=== PATIENT | female | born 1935 | race Caucasian/White ===

== ENCOUNTER 2019-08-07 14:57 | Emergency (ER) | payer OTHER ==
[~2019-08-07] VITALS: Ht 162.6 cm; Wt 70.8 kg
[~2019-08-07 14:57] MED LIST: ALBU3IS INH; ALBU90OI6 INH; ALBU90OI61 INH; ALPR.25 PO; AMARYL 4 MG; AMLO5 PO; ASPI81CH PO; AZIT250 PO; Aldactone25 MG; Aldactone25 MG PO; Amaryl2 MG PO; BENZ100A PO; BUDE6HFA; BUDE6HFA INH; CARV25 PO; CEFD300 PO; CEFU500 PO; CLON.2 TD; CLON.2TP TOP; CLON.3TP TOP; COUMADIN 5 MG; CYCL10 PO; Cipro500 MG PO; Crestor PO; DICLOFENAC RIGHTEYE; DIGITEK; DIGO.25; DIGOXIN 0.25 MG; DIOVAN; ELIQUIS2.5 MG PO; FLUSAL2505; FLUSAL2505 INH; FURO20 PO; FURO40; FURO40 PO; Ferrous Glucon324 M1 PO; GEMF600; GLIM2; GLIM2 PO; GLIM4; GLIM4 PO; HYDACE5 PO; HYDGUAL120 PO; HYLANDS LEG CRAMPS SL; IBUP600 PO; INDA2.5; INDAPAMIDE 2.5 MG; ISOD40ER PO; ISOMON30 PO; ISOMON60ER PO; K-Dur20 MEQ PO; KLOR CON 20 MEQ; LEVFLO500 PO; LOSA50 PO; META800 PO; METO2.5 PO; METO25ER; METO5 PO; METO50ER; METO50ER PO; METPRE4DP PO; Micro-K10 MEQ PO; OMEP20ER; OXYC5; OXYC5 PO; POTA10T PO; POTA20PAC; POTCHL20ER; PRED10 PO; PRED1SU RIGHTEYE; PRED20; PRED20 PO; PREDNISONE 20 MG; PROACE100 PO; Prilosec Otc20 MG PO; QUININE SULFAT324 MG PO; RAMI5; RAMI5 PO; ROFE25; ROSU10TA PO; RXPROACE PO; SANDOZ RIGHTEYE; SERT25 PO; TOPROL 50 MG; TORS10; TORSE20 PO; TRAM50 PO; UBID10 PO; VALS80; VALS80 PO; VIOXX; VITAMIN D-32000 UNI1 PO; Ventolin Soln3 ML INH; WARF1 PO; WARF2 PO; WARF4; WARF4 PO; WARF5; XARELTO10 MG PO; ZYRTEC10 M2 PO; Zofran Odt4 MG PO
[2019-08-07] MEDS ORDERED: SERT25 PO (15:21)
[2019-08-07] MEDS ORDERED: SPIR25 PO (15:22)
[2019-08-07] MEDS ORDERED: METO50ER PO (15:22)
[2019-08-07] MEDS ORDERED: Co Q-1010 MG PO (15:23)
[2019-08-07] MEDS ORDERED: ATOR20 PO (15:23)
[2019-08-07] MEDS ORDERED: QUIN300 (15:24)
[2019-08-07] MEDS ORDERED: ALPR.25 PO (15:24)
[2019-08-07] MEDS ORDERED: OXYC5 PO (15:24)
[2019-08-07] MEDS ORDERED: Prednisone20 MG PO (16:21)
== END 2019-08-07 16:43 | disposition home or self-care (01) ==
LOC: ER 14:57
DX: M54.31 Sciatica, right side (principal); I11.0 Hypertensive heart disease with heart failure; I50.9 Heart failure, unspecified; I25.10 Atherosclerotic heart disease of native coronary artery without angina pectoris; J44.9 Chronic obstructive pulmonary disease, unspecified; E11.9 Type 2 diabetes mellitus without complications; F32.9 Major depressive disorder, single episode, unspecified; Z88.2 Allergy status to sulfonamides; Z88.0 Allergy status to penicillin; Z88.5 Allergy status to narcotic agent; Z79.899 Other long term (current) drug therapy; Z79.01 Long term (current) use of anticoagulants; Z79.82 Long term (current) use of aspirin
CPT/HCPCS: 73502; 99283-25; J7512

== ENCOUNTER 2019-10-07 17:55 | Inpatient (IN) | payer OTHER ==
[~2019-10-07] VITALS: Ht 162.6 cm; Wt 68.3 kg
[~2019-10-07 17:55] MED LIST changes: -ASPI81CH PO; +ATOR40TA PO; +Aspir 8181 MG PO; +Co Q-1010 MG PO; -ISOMON60ER PO; +Isosorbide Mono60 MG PO; +Prednisone20 MG PO; +QUIN300; +SPIR25 PO
[2019-10-07 18:26] LABS: BASOPHILS ABSOLUTE AUTO 0.02 K/mm3 (0.00-0.23); BASOPHILS PERCENT AUTO 0 % (0-2); EOSINOPHILS ABSOLUTE AUTO 0.18 K/mm3 (0.00-0.68); EOSINOPHILS PERCENT AUTO 2 % (0-6); Hematocrit 41.2 % (33.0-51.0); Hemoglobin 13.2 g/dL (11.5-16.0); IMMATURE GRAN ABSOLUTE AUTO 0.02 K/mm3 (0.00-0.10); IMMATURE GRAN PERCENT AUTO 0 % (0-1); LYMPHOCYTES ABSOLUTE AUTO 2.81 K/mm3 (0.84-5.20); LYMPHOCYTES PERCENT AUTO 35 % (21-46); MONOCYTES ABSOLUTE AUTO 0.54 K/mm3 (0.16-1.47); MONOCYTES PERCENT AUTO 7 % (4-13); Mean Corpuscular Volume 94 fL (80-100); Mean Platelet Volume 10.4 fL (9.1-12.4); NEUTROPHILS PERCENT AUTO 56 % (41-73); Platelet Count 171 K/mm3 (150-400); RDW Coefficient Variation 12.4 % (11.7-14.2); White Blood Cell Count 8.07 K/mm3 (4.00-11.30)
[2019-10-07] MEDS ORDERED: Vitamin D2000 UNIT PO (18:37)
[2019-10-07] MEDS ORDERED: ESCI10 PO (18:38)
[2019-10-07] MEDS ORDERED: QUET25 PO (18:39)
[2019-10-07 18:45] LABS: Alanine Aminotransfer (ALT/SGP 32 U/L (12-78); Albumin, Blood 3.8 g/dL (3.4-5.0); Albumin/Globulin Ratio 1.1 (0.8-1.8); Alk Phos 123 U/L (50-136); Anion Gap 3 mmol/L (6-16); Aspartate Aminotrans (AST/SGOT 29 U/L (12-37); Bilirubin, Total 0.5 mg/dL (0.1-1.0); Blood Urea Nitrogen 30 mg/dL (8-24); Bun/Creatinine Ratio 20.3 (12.0-20.0); CO2, Blood 35 mmol/L (21-32); Calcium, Blood 9.9 mg/dL (8.5-10.1); Chloride, Blood 99 mmol/L (98-108); Creatinine, Blood 1.48 mg/dL (0.40-1.00); Globulin, Blood 3.6 g/dL (2.2-4.0); Glomerular Filtration Rate 36 (60-); Glucose, Blood 158 mg/dL (70-99); Sodium, Blood 137 mmol/L (136-145); Total Protein, Blood 7.4 g/dL (6.4-8.2); Troponin I <0.015 ng/mL (0.000-0.040)
[2019-10-07] MEDS ORDERED: ZOLOFT25 MG PO (19:13)
[2019-10-07] MEDS ORDERED: OXYC5 PO (20:03)
--- NOTE | 2019-10-07 22:29 | NUR ---
ADMISSION NOTE PT ARRIVED TO FLOOR VIA STRETCHER, 1 PER ASSIST TO BEDSIDE. PT IS VERY [place], A&O, DISORIENTED TO DATE/TIME. DAUGHTER, JEAN CLAUDE, AT BEDSIDE. TELE APPLIED, DENIES CHEST PAIN, CONT PULSE OX APPLIED. ASSUMING CARE OF PT
--- NOTE | 2019-10-08 05:16 | NUR ---
ELEVATED TROPONINS TROPONINS UP THIS AM TO 0.239, NO CHEST PAIN, NO TELE CHANGES. NOTIFIED DR TOLENTINO. NO FURTHER ORDERS, WILL CONT TO MONITOR.
--- NOTE | 2019-10-08 05:27 | NUR ---
SHIFT SUMMARY PT ADMITTED EARLIER IN SHIFT. PT HX OBTAINED FROM DAUGHTER, JEAN CLAUDE, WHO PT RESIDES WITH AND IS TAKEN CARE OF BY. ACCORDING TO DAUGHTER, PT WAS RECENTLY DIAGNOSED WITH EARLY ALZ-DEMENTIA. PT STARTED HAVING CP AFTER TAKING HER PM DOSE OF SEROQUEL, EPISODE LASTED ABOUT 20 MINS. PT HAS EXTENSIVE CARDIAC HX. INITIALLY, TROPONINS WERE NEGATIVE. HOWEVER, AT REDRAW THIS AM TROPONINS ELEVATED AT 0.239. NO EKG/TELE CHANGES, NO CHEST PAIN. VSS. DR TOLENTINO NOTIFIED AND NO FURTHER ORDERS GIVEN. TELE IN PLACE; 100% VENTRICULAR PACED AT 60. PT A&OX2, DISORIENTED TO LOCATION, DATE/TIME. BED ALARM ON FOR SAFETY, HOWEVER PT HAS BEEN USING CALL LT APPROP. USING FWW WITH 1 PER ASSIST FOR AMBULATION, BASELINE INDEPENDENT c CANE. ON BASELINE HOME O2 @ 2L VIA HUMIDIFIED NC. O2 SATS CURRENTLY 97% ON CONT PULSE OX. NO OTHER CHANGES. WILL CONT TO MONITOR AND PROVIDE CARE UNTIL PRESUMED BY ONCOMING RN.
--- NOTE | 2019-10-08 14:31 | NUR ---
PT TRANSFERRED TO PCU FOR INCREASED MONITORING FROM ELEVATED TROPONINS. PT CURRENTLY DENIES ANY CHEST PAIN OR SHORTNESS OF BREATH. PER TELEMETRY, PT IS SHOWING 100% V-PACED, OTHER VITALS ARE STABLE. PT IS WEARING 2L OXYGEN VIA NASAL CANNULA AND PER HER FAMILY THAT IS WHAT SHE WEARS AT HOME. PT HAS A HISTORY OF DEMENTIA AND IS CURRENTLY A&Ox2. ORIENTED PT AND FAMILY TO UNIT, UPDATED ON PLAN OF CARE AND PLACED BED ALARM FOR PT'S SAFETY.
--- NOTE | 2019-10-08 14:41 | NUR ---
PT TRANSFERED TO PCU. PT LEFT UNIT VIA BED. REPORT GIVEN TO PCU NURSE.
--- NOTE | 2019-10-08 19:17 | NUR ---
SHIFT SUMMARY PT HAS REMAINED WITHOUT CP SINCE ARRIVING TO DEPT THIS AFTERNOON. TELEMETRY CONTINUES TO SHOW V-PACED. THIS EVENING PT HAD A CRITICAL TROP OF 9.14. DR YEUNG WAS CALLED AND ORDERS TO D/C ANY MORE TROPONINS RECEIVED. PT REMAINS ON BASELINE OF HOME O2 AT 2LNC. PT DECLINES ANY OTHER CONCERNS OR COMPLAINTS AT THIS TIME.
--- NOTE | 2019-10-08 22:38 | NUR ---
ASSUMED CARE OF PATIENT AT APPROXIMATELY 1900 FROM ALLISON Crespo RN. PATIENT ALERT AND ORIENTED TO SELF, FAMILY AND LOCATION. PATIENT REPORTS SHE WOULD LIKE TO GO BACK HOME TO HER DOGS SOON POSSIBLE. PATIENT DENIES CP/PRESSURE, PAIN ELESWHERE, NUMBNESS, TINGLING, DIZZINESS OR NAUSEA. PATIENT ONE ASSIST WITH FWW OUT OF BED. 100% PACED ON TELE; OXYGEN SATURATION ABOVE 90% ON 2LPM VIA NC (BASELINE). TROPONIN TRENDING UP; CRITICALLY HIGH; DAYSHIFT RN REPORTS CARDIO NOTIFIED. MULTIPLE FAMILY MEMBERS AT BEDSIDE DURING SHIFT CHANGE; MULTIPLE VISITORS FOR THE FIRST FEW HOURS OF SHIFT. PIV S/L. PATIENT CURRENTLY RESTING IN BED; CALL LIGHT IN REACH; BED IN LOWEST POSISTION; BED ALARM ON; WILL CONTINUE TO MONITOR AND ASSESS UNTIL END OF SHIFT.
[2019-10-09 03:35] LABS: BASOPHILS ABSOLUTE AUTO 0.02 K/mm3 (0.00-0.23); BASOPHILS PERCENT AUTO 0 % (0-2); EOSINOPHILS ABSOLUTE AUTO 0.09 K/mm3 (0.00-0.68); EOSINOPHILS PERCENT AUTO 2 % (0-6); Hemoglobin 12.1 g/dL (11.5-16.0); IMMATURE GRAN ABSOLUTE AUTO 0.02 K/mm3 (0.00-0.10); IMMATURE GRAN PERCENT AUTO 0 % (0-1); LYMPHOCYTES ABSOLUTE AUTO 1.17 K/mm3 (0.84-5.20); LYMPHOCYTES PERCENT AUTO 20 % (21-46); MONOCYTES ABSOLUTE AUTO 0.48 K/mm3 (0.16-1.47); MONOCYTES PERCENT AUTO 8 % (4-13); Mean Corpuscular HGB 30.2 pg (26.0-34.0); Mean Corpuscular HGB Conc 31.8 g/dL (31.5-36.5); Mean Corpuscular Volume 95 fL (80-100); Mean Platelet Volume 10.4 fL (9.1-12.4); NEUTROPHILS ABSOLUTE AUTO 4.09 K/mm3 (1.96-9.15); NEUTROPHILS PERCENT AUTO 70 % (41-73); Platelet Count 148 K/mm3 (150-400); RDW Coefficient Variation 12.3 % (11.7-14.2); RDW Standard Deviation 43.2 fL (35.1-46.3); Red Blood Cell Count 4.01 M/mm3 (3.80-5.20); White Blood Cell Count 5.87 K/mm3 (4.00-11.30)
[2019-10-09 03:57] LABS: Albumin, Blood 3.4 g/dL (3.4-5.0); Albumin/Globulin Ratio 1.1 (0.8-1.8); Bilirubin, Total 0.6 mg/dL (0.1-1.0); Bun/Creatinine Ratio 21.4 (12.0-20.0); Creatinine, Blood 1.26 mg/dL (0.40-1.00); Globulin, Blood 3.1 g/dL (2.2-4.0); Total Protein, Blood 6.5 g/dL (6.4-8.2)
--- NOTE | 2019-10-09 06:06 | NUR ---
NO ACUTE CHANGES TO REPORT. PATIENT SLEPT ABOUT EIGHT HOURS. VSS. WILL CONTINUE TO MONITOR AND ASSESS UNTIL END OF SHIFT.
--- NOTE | 2019-10-09 08:16 | NUR ---
AM NOTE. ASSUMED CARE OF PT APROX 0700. PT IS A&Ox3 UNABLE TO STATE THE DATE BUT KNEW WHERE SHE WAS, WHO THE PRESIDENT WAS, NAME AND . PT WAS ADMITTED FOR CP W/ELEVATED TROPS. PT CURRENTLY DENIES ANY CHEST PAIN/PRESSURE AT THIS TIME. PT'S VS STABLE. PT HAS 1+ EDEMA TO HER BLE. L/S SCATTERED RHONCHI NOTED T/O LOBES, PT IS ON 2 L NC WITH O2 SATS >94%. PT IS 100% PACED ON TELE, NO EVENTS NOTED PER BUCKLE SEWER MACHINE. CALL LIGHT IN REACH, WILL CONTINUE TO MONITOR.
--- NOTE | 2019-10-09 12:34 | NUR ---
Echocardiogram completed.
--- NOTE | 2019-10-09 17:59 | NUR ---
SHIFT SUMMARY. NO ACUTE NEGATIVE CHANGES NOTED THIS SHIFT. PT'S VS HAVE BEEN STABLE. PT HAS BEEN GETTING AND WALKING TO THE BATHROOM PRN W/FWW. PT'S DAUGHTER HAS BEEN AT THE BEDSIDE T/O SHIFT. PT DENIES ANY CHEST PAIN/PRESSURE N/V OR SOB. PT HAS BEEN 100% PACED ON MONITORS AND NO EVENTS NOTED. CALL LIGHT IN REACH, BED IS LOCKED AND LOW, WILL CONTINUE TO MONITOR UNTIL REPORT IS GIVEN TO ONCOMING RN.
--- NOTE | 2019-10-09 21:48 | NUR ---
ASSUMED CARE OF PATIENT AT APPROXIMATELY 1910 FROM BERTRAM Walter RN. PATIENT ALERT AND ORIENTED TO SELF, FAMILY AND LOCATION. PATIENT HAPPY SHE WAS ABLE TO VISIT HER DOG TODAY; REPORTS FAMILY MEMBER BROUGHT PET IN. PATIENT DENIES CP/PRESSURE, PAIN ELESWHERE, NUMBNESS, TINGLING, DIZZINESS OR NAUSEA. PATIENT ONE ASSIST WITH FWW OUT OF BED. 100% PACED ON TELE; OXYGEN SATURATION ABOVE 90% ON 2LPM VIA NC (BASELINE). PIV S/L. PATIENT CURRENTLY RESTING IN BED; CALL LIGHT IN REACH; BED IN LOWEST POSISTION; BED ALARM ON; WILL CONTINUE TO MONITOR AND ASSESS UNTIL END OF SHIFT.
--- NOTE | 2019-10-10 03:04 | NUR ---
REVIEWED CODE STATUS TO ASSIST STAFF.
[2019-10-10 04:34] LABS: BASOPHILS ABSOLUTE AUTO 0.02 K/mm3 (0.00-0.23); BASOPHILS PERCENT AUTO 0 % (0-2); EOSINOPHILS ABSOLUTE AUTO 0.22 K/mm3 (0.00-0.68); EOSINOPHILS PERCENT AUTO 4 % (0-6); Hematocrit 36.4 % (33.0-51.0); Hemoglobin 11.4 g/dL (11.5-16.0); IMMATURE GRAN ABSOLUTE AUTO 0.01 K/mm3 (0.00-0.10); IMMATURE GRAN PERCENT AUTO 0 % (0-1); LYMPHOCYTES ABSOLUTE AUTO 1.72 K/mm3 (0.84-5.20); LYMPHOCYTES PERCENT AUTO 31 % (21-46); MONOCYTES ABSOLUTE AUTO 0.59 K/mm3 (0.16-1.47); MONOCYTES PERCENT AUTO 11 % (4-13); Mean Corpuscular HGB 30.3 pg (26.0-34.0); Mean Corpuscular HGB Conc 31.3 g/dL (31.5-36.5); Mean Corpuscular Volume 97 fL (80-100); Mean Platelet Volume 10.5 fL (9.1-12.4); NEUTROPHILS ABSOLUTE AUTO 2.93 K/mm3 (1.96-9.15); NEUTROPHILS PERCENT AUTO 53 % (41-73); Platelet Count 137 K/mm3 (150-400); RDW Coefficient Variation 12.5 % (11.7-14.2); RDW Standard Deviation 44.6 fL (35.1-46.3); Red Blood Cell Count 3.76 M/mm3 (3.80-5.20); White Blood Cell Count 5.49 K/mm3 (4.00-11.30)
[2019-10-10 04:54] LABS: Albumin, Blood 3.2 g/dL (3.4-5.0); Anion Gap 3 mmol/L (6-16); Blood Urea Nitrogen 33 mg/dL (8-24); Bun/Creatinine Ratio 18.1 (12.0-20.0); CO2, Blood 37 mmol/L (21-32); Calcium, Blood 8.8 mg/dL (8.5-10.1); Chloride, Blood 98 mmol/L (98-108); Creatinine, Blood 1.82 mg/dL (0.40-1.00); Glomerular Filtration Rate 28 (60-); Glucose, Blood 192 mg/dL (70-99); Magnesium, Blood 1.8 mg/dL (1.6-2.4); Phosphorus, Blood 3.4 mg/dL (2.5-4.9); Potassium, Blood 3.8 mmol/L (3.5-5.5); Sodium, Blood 138 mmol/L (136-145)
--- NOTE | 2019-10-10 06:46 | NUR ---
PATIENT SLEPT ABOUT SEVEN HOURS LAST NIGHT. TROPONIN REMAINS CRITICALLY HIGH; TRENDING DOWN FROM LAST ONE. VSS. NO ACUTE CHANGES TO REPORT. WILL CONTINUE TO MONITOR AND ASSESS UNTIL END OF SHIFT.
--- NOTE | 2019-10-10 08:01 | NUR ---
AM NOTE. ASSUMED CARE OF PT APROX 0700. PT IS A&Ox3 UNABLE TO STATE THE DATE AT THIS TIME. PT WAS ADMITTED FOR CHEST PAIN AND WAS FOUND TO HAVE ELEVATED TROPONINS. MEDICAL MANAGMENT WAS THE DECIDED PLAN OF CARE. PT'S VS HAVE BEEN STABLE, PT HAS DENIED ANY CHEST PAIN/PRESSURE AT THIS TIME. PT HAS BEEN GETTING UP AND WALKING TO THE BATHROOM AND SAT UP IN A CHAIR FOR BREAKFAST. PT'S DAUGHTER IS AT THE BEDSIDE. PT IS 100% PACED, 1+ EDEMA IS NOTED TO THE PT'S ANKELS, L/S CLEAR AND DIM T/O, THIS IS IMPROVMENT FROM YESTERDAY WHERE SHE HAD RALES/RHOCHI. BT PRESENT AND NORMOACTIVE, ABD IS SOFT AND NONTENDER TO PALP. CALL LIGHT IN REACH, BED IS LOCKED AND LOW W/BED ALARM ON WILL CONTINUE TO MONITOR.
--- NOTE | 2019-10-10 12:04 | NUR ---
Spiritual care visit conducted. Patient is sleeping in bed but daughters Lorna and Opal are present. 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 They tell me about patient's life, family and santa history. There was laughter and ultamately thankfulness to God for all He has done in their lives and with the patient. I listen empathically, hear story and provide a calming presence and companionship. Family responds well and voice appreciation for the visit. I will continue to remain available to patient and family.
[2019-10-10] MEDS ORDERED: LOSA25 PO (15:51)
== END 2019-10-10 16:13 | disposition home or self-care (01) | DRG 281 ==
LOC: ER 17:55 → MEDS 17:56 → ER 17:56 → MEDS 21:39 → PCU 10-08 13:40 → MEDS 10-09 10:15 → PCU 10-09 10:15 → MEDS 10-09 10:15 → PCU 10-10 16:13
PROVIDERS: Emergency Medicine; Internal Medicine Gastroenterology; ADMIT Internal Medicine
DX: I21.4 Non-ST elevation (NSTEMI) myocardial infarction (principal); J96.11 Chronic respiratory failure with hypoxia; I48.91 Unspecified atrial fibrillation; G89.29 Other chronic pain; E11.9 Type 2 diabetes mellitus without complications; F03.90 Unspecified dementia, unspecified severity, without behavioral disturbance, psychotic disturbance, mood disturbance, and anxiety; F32.9 Major depressive disorder, single episode, unspecified; J44.9 Chronic obstructive pulmonary disease, unspecified; I35.0 Nonrheumatic aortic (valve) stenosis; E78.5 Hyperlipidemia, unspecified; I25.10 Atherosclerotic heart disease of native coronary artery without angina pectoris; I50.9 Heart failure, unspecified; I27.81 Cor pulmonale (chronic); Z95.1 Presence of aortocoronary bypass graft; Z99.81 Dependence on supplemental oxygen; Z88.5 Allergy status to narcotic agent; Z88.0 Allergy status to penicillin; Z88.2 Allergy status to sulfonamides; Z88.8 Allergy status to other drugs, medicaments and biological substances; Z79.82 Long term (current) use of aspirin; Z79.899 Other long term (current) drug therapy
CPT/HCPCS: 36415; 71045; 80053; 80069; 82947; 83735; 83880; 84484; 85025; 93005; 93010; 93308; 93321; 94640; 94760; 94762; 99285-25; G0378; J1940

== ENCOUNTER 2019-10-20 19:26 | Emergency (ER) | payer OTHER ==
[~2019-10-20] VITALS: Ht 167.6 cm; Wt 59.0 kg
[~2019-10-20 19:26] MED LIST changes: +ESCI10 PO; +LOSA25 PO; +QUET25 PO; +Vitamin D2000 UNIT PO; +ZOLOFT25 MG PO
[2019-10-20] MEDS ORDERED: ALPR.25 (19:41)
[2019-10-20 19:59] LABS: BASOPHILS ABSOLUTE AUTO 0.03 K/mm3 (0.00-0.23); BASOPHILS PERCENT AUTO 0 % (0-2); EOSINOPHILS ABSOLUTE AUTO 0.08 K/mm3 (0.00-0.68); EOSINOPHILS PERCENT AUTO 1 % (0-6); Hematocrit 36.7 % (33.0-51.0); Hemoglobin 11.4 g/dL (11.5-16.0); IMMATURE GRAN ABSOLUTE AUTO 0.02 K/mm3 (0.00-0.10); IMMATURE GRAN PERCENT AUTO 0 % (0-1); LYMPHOCYTES ABSOLUTE AUTO 1.54 K/mm3 (0.84-5.20); LYMPHOCYTES PERCENT AUTO 21 % (21-46); MONOCYTES PERCENT AUTO 8 % (4-13); Mean Corpuscular HGB 29.5 pg (26.0-34.0); Mean Corpuscular HGB Conc 31.1 g/dL (31.5-36.5); Mean Corpuscular Volume 95 fL (80-100); Mean Platelet Volume 10.9 fL (9.1-12.4); NEUTROPHILS ABSOLUTE AUTO 4.95 K/mm3 (1.96-9.15); NEUTROPHILS PERCENT AUTO 69 % (41-73); Platelet Count 157 K/mm3 (150-400); RDW Coefficient Variation 12.5 % (11.7-14.2); RDW Standard Deviation 43.6 fL (35.1-46.3); Red Blood Cell Count 3.86 M/mm3 (3.80-5.20); White Blood Cell Count 7.22 K/mm3 (4.00-11.30)
[2019-10-20 20:18] LABS: Bun/Creatinine Ratio 24.4 (12.0-20.0); Calcium, Blood 8.6 mg/dL (8.5-10.1); Creatinine, Blood 1.6 mg/dL (0.40-1.00); Potassium, Blood 4.3 mmol/L (3.5-5.5); Troponin I 0.057 ng/mL (0.000-0.040)
[2019-10-20] MEDS ORDERED: ALBU3IS INH (20:42)
[2019-10-20] MEDS ORDERED: Prednisone20 MG PO (20:42)
== END 2019-10-20 22:01 | disposition home or self-care (01) ==
LOC: ER 19:26
PROVIDERS: Physician Assistant
DX: J44.1 Chronic obstructive pulmonary disease with (acute) exacerbation (principal); J06.9 Acute upper respiratory infection, unspecified; I11.0 Hypertensive heart disease with heart failure; I50.9 Heart failure, unspecified; I25.2 Old myocardial infarction; I48.91 Unspecified atrial fibrillation; E11.9 Type 2 diabetes mellitus without complications; F32.9 Major depressive disorder, single episode, unspecified; Z88.0 Allergy status to penicillin; Z88.2 Allergy status to sulfonamides; Z88.5 Allergy status to narcotic agent; Z79.82 Long term (current) use of aspirin; Z79.899 Other long term (current) drug therapy
CPT/HCPCS: 36415; 71046; 80048; 83880; 84484; 85025; 93005; 93010; 94640; 96374; 99285-25; J2930

== ENCOUNTER 2019-10-22 12:12 | Inpatient (IN) | payer OTHER ==
[~2019-10-22] VITALS: Ht 167.6 cm; Wt 68.0 kg
[~2019-10-22 12:12] MED LIST changes: +ALPR.25
[2019-10-22 12:33] LABS: Hematocrit 42.8 % (33.0-51.0); Hemoglobin 13.9 g/dL (11.5-16.0); Mean Corpuscular HGB 29.8 pg (26.0-34.0); Mean Corpuscular HGB Conc 32.5 g/dL (31.5-36.5); Mean Platelet Volume 11.4 fL (9.1-12.4); Platelet Count 187 K/mm3 (150-400); RDW Coefficient Variation 12.7 % (11.7-14.2); RDW Standard Deviation 42.5 fL (35.1-46.3); Red Blood Cell Count 4.67 M/mm3 (3.80-5.20); White Blood Cell Count 17.27 K/mm3 (4.00-11.30)
[2019-10-22 12:35] LABS: Mean Corpuscular Volume 92 fL (80-100)
[2019-10-22 12:48] LABS: International Normalized Ratio 1.33; Prothrombin Time Results 13.7 Sec (9.7-11.5)
[2019-10-22 12:54] LABS: Albumin, Blood 3.3 g/dL (3.4-5.0); Albumin/Globulin Ratio 0.8 (0.8-1.8); Bilirubin, Total 0.5 mg/dL (0.1-1.0); Bun/Creatinine Ratio 31.2 (12.0-20.0); Calcium, Blood 8.9 mg/dL (8.5-10.1); Creatinine, Blood 2.02 mg/dL (0.40-1.00); Potassium, Blood 4.2 mmol/L (3.5-5.5); Total Protein, Blood 7.3 g/dL (6.4-8.2)
[2019-10-22 12:55] LABS: BAND PERCENT MAN 26 % (0-8); BASOPHILS PERCENT MAN 0 % (0-2); EOSINOPHILS PERCENT MAN 0 % (0-6); LYMPHOCYTES ABSOLUTE MAN 0.86 K/mm3 (0.84-5.20); LYMPHOCYTES PERCENT MAN 5 % (21-46); MONOCYTES ABSOLUTE MAN 0.69 K/mm3 (0.16-1.47); MONOCYTES PERCENT MAN 4 % (4-13); NEUTROPHILS ABSOLUTE MAN 15.71 K/mm3 (1.96-9.15); SEG NEUTROPHILS PERCENT MAN 65 % (41-73); TOTAL CELLS COUNTED 100
[2019-10-22 13:02] LABS: PCO2 Arterial 47.9 mmHg (35-45); PO2 Arterial 100 mmHg (80-100); pH Blood Arterial 7.35 (7.35-7.45)
[2019-10-22 13:02] LABS: Troponin I 6.46 ng/mL (0.000-0.040)
[2019-10-22 13:15] LABS: Influenza A Negative (NEGATIVE); Influenza B Negative (NEGATIVE)
[2019-10-22 13:36] LABS: Source, Urine Catheter
[2019-10-22 13:40] LABS: Bilirubin, Urine Neg (Neg); Blood, Urine 4+ (Neg); Glucose Qualitative, Urine Neg (Neg); Ketones, Urine Neg (Neg); Leukocyte Esterase, Urine Neg (Neg); Nitrite, Urine Neg (Neg); Protein, Urine 3+ (Neg); Urobilinogen, Urine NORM (Normal)
[2019-10-22 14:54] LABS: Appearance, Urine Hazy (Clear); Color, Urine Yellow (P-Yellow)
[2019-10-22 15:12] LABS: Amorphous Mod (0-Heavy); Bacteria Mod /hpf; Red Blood Cells, Urine Not Seen /hpf (0-2); Squamous Epithelial Cells Few /hpf (Few); White Blood Cells, Urine Not Seen /hpf (0-5)
--- NOTE | 2019-10-22 16:30 | NUR ---
ASSUMED CARE OF PATIENT; SEE ASSESSMENT CHARTING FOR DETAILS. PATIENT ORTHOPNEIC; OXYGEN AT 5L/MIN VIA NC; HUMIDIFIER APPLIED. LUNGS "WET"; MOIST AND COARSE T/O. PATIENT ABLE TO SPEAK SHORT SENTENCES; PLEASANT AND COOPERATIVE. DAUGHTERS PRESENT AND ATTENTIVE/CARING. PATIENT EXPERIENCING PAIN TO L EAR (ACHING) FOR SEVERAL DAYS; WENT TO PCP AND AB TX ORDERED; 1ST DOSE GIVEN THIS AM; ENDED UP ARRIVING TO ER VIA EMS D/T ACUTE RESP. DISTRESS. BNP >5000 AND TROPONIN LEVEL ELEVATED. SEE ER RECORD FOR POC AND CONCERNS. FAMILY AND PATIENT ORIENTED TO ROOM AND PROTOCOLS. HAS PINPOINT OPENED SPOT AT TOP OF COCCYX; NO DRAINAGE; RN PLACED PROTECTIVE DRESSING.
--- NOTE | 2019-10-22 18:30 | NUR ---
SUMMARY: DR. KNIGHT (CARDIOLOGY) HAD LONG DISCUSSION WITH PATIENTS POA/DAUGHTER JEAN CLAUDE. FAMILY AND PATIENT WISH DNR/COMFORT CARE STATUS; NO ONE IN ER HAD ASKED THEM RE: CODE STATUS. DR. BULL CONSULTING FOR ARF; BUMEX GIVEN; SEE FURTHER ORDERS. PATIENT TOLERATING BITES OF MEALS WITH ASSIST. MCGILL CATH. IN PLACE; TO GRAVITY; ABOUT 240ML NOTED IN BAG (RECEIVED 40MG LASIX IN ER). 24 HOUR URINE STARTED AT 1330 WHEN MCGILL PLACED; ICED MCGILL BAG WITH URINE. WILL REPORT TO ONCOMING RN.
--- NOTE | 2019-10-22 18:52 | NUR ---
DR KNIGHT HERE; SEE ORDERS. DC'D HEPARIN TX D/T RECEIVING ELOQUIS.
[2019-10-23 03:43] LABS: Hematocrit 43.7 % (33.0-51.0); Hemoglobin 14.4 g/dL (11.5-16.0); Mean Corpuscular Volume 91 fL (80-100); Mean Platelet Volume 11.4 fL (9.1-12.4); Platelet Count 172 K/mm3 (150-400); RDW Coefficient Variation 12.7 % (11.7-14.2); RDW Standard Deviation 42.4 fL (35.1-46.3); White Blood Cell Count 16.42 K/mm3 (4.00-11.30)
[2019-10-23 04:08] LABS: Alanine Aminotransfer (ALT/SGP 75 U/L (12-78); Albumin, Blood 2.6 g/dL (3.4-5.0); Albumin/Globulin Ratio 0.7 (0.8-1.8); Alk Phos 91 U/L (50-136); Anion Gap 10 mmol/L (6-16); Aspartate Aminotrans (AST/SGOT 111 U/L (12-37); Bilirubin, Total 0.6 mg/dL (0.1-1.0); Blood Urea Nitrogen 68 mg/dL (8-24); Bun/Creatinine Ratio 35.2 (12.0-20.0); CO2, Blood 27 mmol/L (21-32); Calcium, Blood 8.8 mg/dL (8.5-10.1); Chloride, Blood 97 mmol/L (98-108); Creatinine, Blood 1.93 mg/dL (0.40-1.00); Globulin, Blood 3.8 g/dL (2.2-4.0); Glomerular Filtration Rate 26 (60-); Glucose, Blood 280 mg/dL (70-99); Magnesium, Blood 1.5 mg/dL (1.6-2.4); Phosphorus, Blood 3.2 mg/dL (2.5-4.9); Potassium, Blood 4.2 mmol/L (3.5-5.5); Sodium, Blood 134 mmol/L (136-145); Total Protein, Blood 6.4 g/dL (6.4-8.2)
[2019-10-23 05:05] LABS: BAND PERCENT MAN 41 % (0-8); BASOPHILS PERCENT MAN 0 % (0-2); EOSINOPHILS PERCENT MAN 0 % (0-6); LYMPHOCYTES ABSOLUTE MAN 0.65 K/mm3 (0.84-5.20); LYMPHOCYTES PERCENT MAN 4 % (21-46); METAMYELOCYTE ABSOLUTE MAN 0.98 K/mm3 (0.00-0.00); METAMYELOCYTE PERCENT MAN 6 % (0-0); MONOCYTES ABSOLUTE MAN 0.65 K/mm3 (0.16-1.47); MONOCYTES PERCENT MAN 4 % (4-13); MYELOCYTE ABSOLUTE MAN 0.32 K/mm3 (0.00-0.00); MYELOCYTE PERCENT MAN 2 % (0-0); NEUTROPHILS ABSOLUTE MAN 13.79 K/mm3 (1.96-9.15); SEG NEUTROPHILS PERCENT MAN 43 % (41-73); TOTAL CELLS COUNTED 100
--- NOTE | 2019-10-23 05:23 | NUR ---
Shift Assessment Patient slept well overnight. She did request tylenol for left ear pain, which was effective. Assisted to reposition q2h. 24 urine collection in progress.
--- NOTE | 2019-10-23 09:31 | NUR ---
AM NOTE... ASSUMED CARE OF PT APROX 0700, PT WAS ADMITTED FOR RESP FAILURE. PER PT AND FAMILY COMFORT CARE IS MOST LIKELY GOING TO BE THE PLAN OF CARE. CURRENTLY THE PT IS VERY SLEEPY BUT COMFORTABLE. PT DENIES CHEST PAIN/PRESSURE N/V OR INCREASED SOB. PT WAS ON 5L NC AT THE START OF THIS SHIFT, DUE TO THE PT'S HEAVY SLEEPING AND SATS DROPPING TO 85% O2 WAS INCREASED TO 7L HI FLOW NC. MULTIPE FAMILY MEMBERS AT THE BEDSIDE. WILL CONTINUE TO MONITOR.
--- NOTE | 2019-10-23 10:33 | NUR ---
Spoke with pt's family. They are wanting a comfort care and hospice plan. They are waiting on more family to arrive to make plans for this. Daughter is expressing wish for pt to return home on hospice. There are many family members that have medical backgrounds and they have a good understanding of hospice services. Will follow up with family after members arrive.
--- NOTE | 2019-10-23 11:09 | NUR ---
Comfort Care: Pt is resting comfortably in bed. She is short of breath, shallow respirations. Spoke with family out of the room. They are supportive of of a hospice plan. Pt will be made comfort care and discharged to hospice this week. There are three daughters present and making the decision. Pt has dementia, is very agitated and anxious with her declining health. She lives with daughter, Lorna. All daughters have medical background and feel comfortable caring for the pt at home. Comfort medications are discussed. Pt has been sleeping more, eating less and has poor appetite. They have discussed poor prognosis with quickbooks bookkeeper. Daughters report that they would like to have pt home for [place], even if hospice cannot be present for admission into services. Message left for [facility]. Hospice referal placed. Call to Dr. Reilly for comfort care orders and orders placed. Cardiac medications will be continued, IV bumex continue for managment of symptoms and to optimize pt before she is released home this week. No other concerns at this time. Palliative care to remain available if needed.
--- NOTE | 2019-10-23 18:20 | NUR ---
SHIFT SUMMARY. PT WAS PLACED ON COMFORT CARE, PT HAS BEEN KEPT COMFORTABLE AND PT HAS HAD MULTIPLE FAMILY MEMBERS AT THE BEDSIDE T/O THE SHIFT. PT DOES NOT SHOW ANY S/SX OF PAIN OR DISCOMFORT AT THIS TIME. WILL CONTINUE TO MONITOR UNTIL REPORT IS GIVEN TO ON COMING RN.
--- NOTE | 2019-10-23 22:26 | NUR ---
Patient wakes to verbal stimuli. complained of back pain at the beginning of the shift, medicated per EMAR. Family in room, educated to interventions and current medication schedules. refilled comfort cart for family. Britney, patient's dughter will stay the night. patient repositioned on to left side.
--- NOTE | 2019-10-24 02:59 | NUR ---
PATIENT HAS BEEN RESTING QUIETLY. FAMILY ASLEEP IN THE ROOM. PATIENT DOESN NOT WISH TO BE MOVED AT THIS TIME.
--- NOTE | 2019-10-24 03:23 | NUR ---
PATIENT TURNED TO HER RT SIDE FOR COMFORT. WAKES EASILY AND HOLDS ATTENTION AND CONVERSATION.
--- NOTE | 2019-10-24 05:03 | NUR ---
NO ACUTE CHANGES. FAMILY MEMBER LEFT AT ABOUT 0400.
--- NOTE | 2019-10-24 09:30 | NUR ---
ATTEMPTED TO CALL FOR REPORT FROM PCU NURSE. (LATE ENTRY) NURSE TO CB WHEN ABLE TO PROVIDE RPT.
--- NOTE | 2019-10-24 11:56 | NUR ---
Spiritual care visit conducted. Patient is lying in bed and alert. I introduced myself and ask patient if I could visit and patient said, "Yes." I asked patient several other questions and patient only answered in short sentences. I asked patient if I could say a prayer for her and she again said, "Yes." I gladly provided prayer. Patient repeated, "Amen" after me at the close of the prayer. Patient thanked me for coming to visit. I left patient's room but then saw someone go into the room after me. I then went back in and met patient's daughter Opal (1 of 9 children). Opal stated that she is sad but doing okay. I will continue to remain available to patient and family.
[2019-10-24] MEDS ORDERED: Ativan1 MG PO (12:11)
[2019-10-24] MEDS ORDERED: MORP20L PO (12:13)
[2019-10-24] MEDS ORDERED: Milk Of Ma400 MG/5 M PO (12:14)
[2019-10-24] MEDS ORDERED: SENNA PLUS 8.61 EACH PO (12:15)
[2019-10-24] MEDS ORDERED: HYOS.125 PO (12:16)
[2019-10-24] MEDS ORDERED: Fleet Enema132 ML PR (12:17)
== END 2019-10-24 15:02 | disposition hospice, home (50) | DRG 280 ==
LOC: ER 12:12 → PCU 13:53
PROVIDERS: Emergency Medicine; ADMIT Internal Medicine
DX: I13.0 Hypertensive heart and chronic kidney disease with heart failure and stage 1 through stage 4 chronic kidney disease, or unspecified chronic kidney disease (principal); N17.0 Acute kidney failure with tubular necrosis; I21.4 Non-ST elevation (NSTEMI) myocardial infarction; I50.43 Acute on chronic combined systolic (congestive) and diastolic (congestive) heart failure; I48.20 Chronic atrial fibrillation, unspecified; J44.1 Chronic obstructive pulmonary disease with (acute) exacerbation; N17.9 Acute kidney failure, unspecified; I25.10 Atherosclerotic heart disease of native coronary artery without angina pectoris; Z95.5 Presence of coronary angioplasty implant and graft; Z90.5 Acquired absence of kidney; Z79.82 Long term (current) use of aspirin; E87.70 Fluid overload, unspecified; Z95.0 Presence of cardiac pacemaker; I25.2 Old myocardial infarction; Z85.528 Personal history of other malignant neoplasm of kidney; Z99.81 Dependence on supplemental oxygen; N18.3 Chronic kidney disease, stage 3 (moderate); Z66 Do not resuscitate; I27.81 Cor pulmonale (chronic); I27.20 Pulmonary hypertension, unspecified; F03.90 Unspecified dementia, unspecified severity, without behavioral disturbance, psychotic disturbance, mood disturbance, and anxiety; I08.0 Rheumatic disorders of both mitral and aortic valves
CPT/HCPCS: 36415; 36600; 51702; 71045; 76770; 80053; 81001; 82803; 83735; 83880; 84100; 84484; 85025; 85610; 85730; 87086; 87804; 93005; 93010; 93308; 93321; 94640; 94644; 94762; 96361-59; 96374-59; 96375-59; 99285-25; A9270; J1940; J1956; J2270; J2405; J2930; J3475; J7030; Q9957